=== PATIENT | female | born 1995 | race Two or more races ===

== ENCOUNTER → 2018-02-16 | Outpatient (CLI) | payer MEDICAID | END | disposition home or self-care (01) | LOC: RADPV 09:36 | PROVIDERS: ATTEND Family Medicine | DX: M81.0 Age-related osteoporosis without current pathological fracture (principal); E55.9 Vitamin D deficiency, unspecified | CPT/HCPCS: 77080 ==

== ENCOUNTER 2021-05-09 03:19 | Inpatient (IN) | payer MEDICAID ==
[~2021-05-09] VITALS: Ht 162.6 cm; Wt 42.0 kg
[~2021-05-09 03:19] MED LIST: BACL10TA JT; CHOL-35 JT; DEXA2 PEG; DILT30TA4 JT; FAMO20 JT; FLUT16H NASAL; LEVE500S9 JT; MIDO5TAB29 JT; MULT400T15 JT; OXCA300O3 JT; POLY8.5P JT; SENN8.6T20 JT; SIME40DR2 JT
[2021-05-09] MEDS ORDERED: ONDANSETRON HCL 4 MG/2 ML VIAL IVP PRN ×2 (04:15)
[2021-05-09] MEDS ORDERED: ACETAMINOPHEN 325 MG TABLET PO PRN (04:15)
[2021-05-09] MEDS ORDERED: 0.9% SODIUM CHLORIDE 10 ML SYRINGE IVP PRN (04:15)
[2021-05-09 04:36] LABS: COVID AG,FIA SOURCE NASOPHARYNGEAL
[2021-05-09 04:42] LABS: BASOPHILS % (AUTO) 0.8 % (0.0-2.0); EOSINOPHILS % (AUTO) 2.6 % (1.0-6.0); HEMATOCRIT 42.8 % (36-46); HEMOGLOBIN 14.1 g/dL (12.0-16.0); LYMPHOCYTES % (AUTO) 46.1 % (22.0-44.0); MEAN CORPUSCULAR HEMOGLOBIN 28.6 pg (26.0-34.0); MEAN CORPUSCULAR HGB CONC 32.9 G/dL (31.0-37.0); MEAN CORPUSCULAR VOLUME 87 fL (80-100); MONOCYTES # (AUTO) 0.3 K/uL (0.1-1.0); MONOCYTES % (AUTO) 7.8 % (2.0-9.0); NEUTROPHILS # (AUTO) 1.9 K/uL (1.8-7.7); NEUTROPHILS % (AUTO) 42.7 % (40.0-70.0); PLATELET COUNT (AUTO) 209 K/uL (150-450); RED BLOOD CELL COUNT(AUTO) 4.93 MIL/uL (4.00-5.20); RED CELL DISTRIBUTION WIDTH 16.7 % (11.5-14.5)
[2021-05-09 04:50] LABS: ANION GAP 6 mmol/L (8-16); CALCIUM, TOTAL 8.7 mg/dL (8.8-10.5); CARBON DIOXIDE 27 mmol/L (22-29); CHLORIDE 106 mmol/L (98-107); CREATININE 0.32 mg/dL (0.60-1.30); GLOMERULAR FILTR. RATE CALC > 60 mL/min (>60); GLUCOSE,RANDOM 93 mg/dL (70-110); POTASSIUM 4.1 mmol/L (3.5-5.1); SODIUM SERUM 139 mmol/L (136-145); UREA NITROGEN, BLOOD 12 mg/dL (7-18)
[2021-05-09 04:56] LABS: ALANINE AMINOTRANSFERASE 31 U/L (12-78); ALBUMIN 3.6 g/dL (3.4-5.0); ALKALINE PHOSPHATASE 103 U/L (46-116); ASPARTATE AMINOTRANSFERASE 19 U/L (15-37); BILIRUBIN,TOTAL 0.1 mg/dL (0.1-1.0); TOTAL PROTEIN, SERUM 7.1 g/dL (6.4-8.2)
[2021-05-09] MEDS: SODIUM CHLORIDE 0.45% 500 ML IV SCH ×2 (05:05→19:35)
[2021-05-09 05:27] LABS: APPEARANCE,URINE TURBID (CLEAR); BILIRUBIN,URINE NEGATIVE (NEGATIVE); GLUCOSE, URINE (UA) NEGATIVE (NEGATIVE); KETONES,URINE NEGATIVE (NEGATIVE); LEUKOCYTE ESTERASE ,URINE NEGATIVE (NEGATIVE); NITRATE,URINE NEGATIVE (NEGATIVE); OCCULT BLOOD,URINE NEGATIVE (NEGATIVE); PROTEIN,URINE NEGATIVE (NEGATIVE); UROBILINOGEN,URINE 0.2 mg/dL (<=1.0)
[2021-05-09] MEDS ORDERED: IOHEXOL 350 MG/ML 100 ML VIAL ONE (05:30)
[2021-05-09] MEDS ORDERED: SODIUM CHLORIDE 0.9% 100 ML ONE (05:30)
[2021-05-09 05:37] LABS: AMORPHOUS SEDIMENT,UR Many /LPF (None Seen); BACTERIA,URINE Few /HPF (None Seen); RBC,URINE 0-2 /HPF (0-2); WBC,URINE 0-2 /HPF (0-5)
[2021-05-09] MEDS ORDERED: SODIUM PHOS/SODIUM BIPHOS 133 ML ENEMA PR PRN (05:45)
[2021-05-09] MEDS ORDERED: LORazepam 2 MG/ML VIAL IVP PRN (05:45)
[2021-05-09] MEDS: LevETIRAcetam 750 MG in DEXTROSE 5%-WATER 100 ML IV SCH ×2 (06:17→20:00)
[2021-05-09] MEDS: LevETIRAcetam 500 MG in DEXTROSE 5%-WATER 100 ML IV SCH ×2 (06:18→19:35)
[2021-05-09 10:27] VITALS: BP 129/68
[2021-05-09 15:05] VITALS: BP 124/72
[2021-05-09 19:20] VITALS: BP 110/82
[2021-05-09] MEDS: FAMOTIDINE 10 MG/ML 2 ML VIAL IVP SCH (20:30)
[2021-05-09] MEDS: HEPARIN SODIUM,PORCINE 5,000 UNITS/ML VIAL SQ SCH ×2 (20:32→23:47)
[2021-05-10] MEDS: SODIUM CHLORIDE 0.45% 500 ML IV SCH ×2 (02:40→13:05)
[2021-05-10 04:08] VITALS: BP 104/78
[2021-05-10 07:10] LABS: BASOPHILS % (AUTO) 0.7 % (0.0-2.0); EOSINOPHILS % (AUTO) 1.4 % (1.0-6.0); HEMATOCRIT 39.1 % (36-46); HEMOGLOBIN 12.9 g/dL (12.0-16.0); LYMPHOCYTES % (AUTO) 35.1 % (22.0-44.0); MEAN CORPUSCULAR HEMOGLOBIN 28.2 pg (26.0-34.0); MEAN CORPUSCULAR HGB CONC 32.9 G/dL (31.0-37.0); MEAN CORPUSCULAR VOLUME 86 fL (80-100); MONOCYTES # (AUTO) 0.4 K/uL (0.1-1.0); MONOCYTES % (AUTO) 6.7 % (2.0-9.0); NEUTROPHILS # (AUTO) 3.1 K/uL (1.8-7.7); NEUTROPHILS % (AUTO) 56.1 % (40.0-70.0); PLATELET COUNT (AUTO) 213 K/uL (150-450); RED BLOOD CELL COUNT(AUTO) 4.56 MIL/uL (4.00-5.20); RED CELL DISTRIBUTION WIDTH 16.7 % (11.5-14.5)
[2021-05-10 07:25] LABS: ANION GAP 16 mmol/L (8-16); CALCIUM, TOTAL 8.6 mg/dL (8.8-10.5); CARBON DIOXIDE 20 mmol/L (22-29); CHLORIDE 105 mmol/L (98-107); CREATININE 0.25 mg/dL (0.60-1.30); GLOMERULAR FILTR. RATE CALC > 60 mL/min (>60); GLUCOSE,RANDOM 86 mg/dL (70-110); PHOSPHORUS 3.6 mg/dL (2.5-4.9); POTASSIUM 3.7 mmol/L (3.5-5.1); SODIUM SERUM 141 mmol/L (136-145); UREA NITROGEN, BLOOD 7 mg/dL (7-18)
[2021-05-10 08:10] VITALS: BP 141/75
[2021-05-10] MEDS: DEXTROSE 5% IV SCH ×2 (09:02→21:22)
[2021-05-10] MEDS: LEVETIRACETAM IV SCH ×2 (09:02→21:22)
[2021-05-10] MEDS: FAMOTIDINE 10 MG/ML 2 ML VIAL IVP SCH ×2 (09:02→20:15)
[2021-05-10] MEDS: HEPARIN SODIUM,PORCINE 5,000 UNITS/ML VIAL SQ SCH ×3 (09:02→23:54)
[2021-05-10] MEDS: WATER IV SCH ×2 (09:02→21:22)
[2021-05-10] MEDS: CIPROFLOXACIN 400 MG/D5% WATER 200 ML IV SCH ×2 (11:41→23:54)
[2021-05-10] MEDS: MetroNIDAZOLE 750 MG/NACL 150 ML IV SCH ×2 (13:03→20:15)
[2021-05-10] MEDS ORDERED: SODIUM CHLORIDE 0.9% 1,000 ML ONE (13:59)
[2021-05-10 15:53] VITALS: BP 126/85
[2021-05-10 19:55] VITALS: BP 132/91
[2021-05-10] MEDS ORDERED: DEXTROSE 50%-WATER 25 GM/50 ML SYRINGE IVP PRN (20:30)
[2021-05-10] MEDS ORDERED: INSULIN LISPRO 100 UNITS/ML SQ PRN (20:30)
[2021-05-10] MEDS ORDERED: SODIUM CHLORIDE 0.9% 500 ML IV ONE (20:39)
[2021-05-11 00:32] VITALS: BP 106/68
[2021-05-11] MEDS ORDERED: MORPHINE SULFATE 2 MG/ML SYRINGE IVP PRN (01:30)
[2021-05-11] MEDS: MetroNIDAZOLE 750 MG/NACL 150 ML IV SCH (03:37)
[2021-05-11 03:55] VITALS: BP 104/61
[2021-05-11] MEDS ORDERED: PROPOFOL 1% 20 ML VIAL IVP ONE (05:19)
[2021-05-11] MEDS ORDERED: LIDOCAINE/PF 2% 5 ML VIAL IM ONE (05:19)
[2021-05-11 07:46] VITALS: BP 124/84
[2021-05-11] MEDS: HEPARIN SODIUM,PORCINE 5,000 UNITS/ML VIAL SQ SCH (08:02)
[2021-05-11] MEDS: FAMOTIDINE 10 MG/ML 2 ML VIAL IVP SCH ×2 (08:02→09:00)
[2021-05-11] MEDS: LEVETIRACETAM IV SCH (09:00)
[2021-05-11] MEDS: WATER IV SCH (09:00)
[2021-05-11] MEDS: DEXTROSE 5% IV SCH (09:00)
[2021-05-11] MEDS ORDERED: LevETIRAcetam 100 MG/ML 5 ML SOLUTION UDCUP PO SCH (11:45)
[2021-05-11] MEDS ORDERED: LEVO-72 PO (11:59)
[2021-05-11] MEDS ORDERED: METR500 PO (12:01)
[2021-05-11 12:45] VITALS: BP 140/72
[2021-05-11 13:12] LABS: GLUCOMETER DEV NAME(LOC) 6S.1; GLUCOSE,POINT OF CARE 132 MG/DL (70-110)
[2021-05-11 13:12] LABS: GLUCOMETER DEV NAME(LOC) 6S.1; GLUCOSE,POINT OF CARE 106 MG/DL (70-110)
[2021-05-11 18:59] LABS: GLUCOMETER DEV NAME(LOC) 6N.1; GLUCOSE,POINT OF CARE 165 MG/DL (70-110)
== END 2021-05-11 14:46 | disposition home or self-care (01) | DRG 252 ==
LOC: EMS 03:19 → 6N 05:00
PROVIDERS: ADMIT Internal Medicine; ATTEND Internal Medicine
PROC: 4A10X4Z Monitoring of Central Nervous Electrical Activity, External Approach (ICD-10-PCS; principal; 2021-05-09)
PROC: 0DH63UZ Insertion of Feeding Device into Stomach, Percutaneous Approach (ICD-10-PCS; 2021-05-10)
DX: K94.23 Gastrostomy malfunction (principal); G93.41 Metabolic encephalopathy; E43 Unspecified severe protein-calorie malnutrition; F84.2 Rett's syndrome; I11.9 Hypertensive heart disease without heart failure; Z20.822 Contact with and (suspected) exposure to COVID-19; R62.50 Unspecified lack of expected normal physiological development in childhood; K21.9 Gastro-esophageal reflux disease without esophagitis; Y73.8 Miscellaneous gastroenterology and urology devices associated with adverse incidents, not elsewhere classified; G40.909 Epilepsy, unspecified, not intractable, without status epilepticus; Z98.1 Arthrodesis status; Z68.1 Body mass index [BMI] 19.9 or less, adult; Z79.899 Other long term (current) drug therapy; Z88.8 Allergy status to other drugs, medicaments and biological substances; Z91.018 Allergy to other foods; Y92.89 Other specified places as the place of occurrence of the external cause
CPT/HCPCS: 74018; 74177; 80048; 80053; 81001; 82962; 83735; 84100; 84460; 84703; 85025; 87081; 87340; 93005; 95816; 99285; J0712; J0744; J1644; J2270; J2704; J3490; J7030; J7040; J7050; J7060; Q9967; 36415-L1; 36415-TC

== ENCOUNTER 2021-10-10 20:57 | Emergency (ER) | payer MEDICAID ==
[~2021-10-10] VITALS: Ht 152.4 cm; Wt 62.4 kg
[~2021-10-10 20:57] MED LIST changes: -DEXA2 PEG; -FLUT16H NASAL; +LEVO-72 PO; +METR500 PO
[2021-10-10] MEDS ORDERED: ESOM20CA39 JT (21:13)
[2021-10-10] MEDS ORDERED: GARL200T PO (21:13)
[2021-10-10] MEDS ORDERED: [UNRECOGNIZED DRUG - CODE] PO (21:13)
[2021-10-10] MEDS ORDERED: POLY8.5P PO (21:13)
[2021-10-10 23:06] VITALS: BP 106/70
== END 2021-10-11 00:43 | disposition home or self-care (01) ==
LOC: EMS 21:01
DX: K94.23 Gastrostomy malfunction (principal); F84.2 Rett's syndrome; K21.9 Gastro-esophageal reflux disease without esophagitis; Z79.899 Other long term (current) drug therapy; Z91.011 Allergy to milk products; Z88.8 Allergy status to other drugs, medicaments and biological substances
CPT/HCPCS: 99283; Z7502